=== PATIENT | female | born 1970 | race Caucasian/White ===

== ENCOUNTER 2017-12-19 09:40 | Outpatient (CLI) | payer BC | END 2017-12-19 10:00 | disposition home or self-care (01) | LOC: PTMAIN 09:40 | PROVIDERS: ATTEND Otolaryngology | DX: K21.9 Gastro-esophageal reflux disease without esophagitis (principal) | CPT/HCPCS: 31579 ==

== ENCOUNTER → 2018-10-15 | Outpatient (CLI) | payer BC ==
--- NOTE | 2018-10-15 14:53 | CT ---
EXAMINATION TYPE: CT brain wo con DATE OF EXAM: 10/15/2018 COMPARISON: 06/28/2016 HISTORY: Dizziness. CT DLP: 995.[address] of the brain was performed. Ventriculoperitoneal shunt is noted with right frontal entry and distal tip within the region of the third ventricle. Overall stable appearance with regards to location and general appearance. The ventricles, basal cisterns and sulci overlying the cerebral convexities demonstrate a normal appe arance. There is no evidence for intracranial hemorrhage or sulcal effacement. No mass effects are seen. Osseous calvarium is intact. If symptoms persist consider MRI as clinically warranted. IMPRESSION: 1. No acute intracranial process is seen at this time.
== END | disposition home or self-care (01) ==
LOC: RADCTMAIN 13:22
PROVIDERS: ATTEND Psychiatry & Neurology Neurology
DX: R42 Dizziness and giddiness (principal); R29.818 Other symptoms and signs involving the nervous system; Z98.2 Presence of cerebrospinal fluid drainage device
CPT/HCPCS: 70450

== ENCOUNTER → 2021-06-25 | Outpatient (CLI) | payer BC ==
--- NOTE | 2021-06-25 09:41 | USB ---
Reason for exam: additional evaluation requested from abnormal screening. US Breast BILAT Technologist: Betsy Morales Right complete breast ultrasound includes all four quadrants, the retroareolar region and axilla. Finding demonstrates a 0.5 x 0.5 x 0.3cm cystic lesion at 8 o'clock. Left complete breast ultrasound includes all four quadrants, the retroareolar region and axilla. Finding demonstrates a 0.4 x 0.5 x 0.3cm cystic lesion at the nipple. These results were verbally communicated with the patient and result sheet given to the patient on 06/25/21. ASSESSMENT: Benign, BI-RAD 2 RECOMMENDATION: Routine screening mammogram of both breasts in 1 year. Manage patient on a clinical basis.
--- NOTE | 2021-06-25 14:02 | MM ---
Reason for exam: clinical finding. Last mammogram was performed 8 years ago. Physical Findings: Nurse did not find any significant physical abnormalities on exam. MG Diagnostic Mammo w CAD JERRY Bilateral CC and MLO view(s) were taken. Prior study comparison: June 20, 2013, bilateral digital screening mammo w/CAD. The breast tissue is heterogeneously dense. This may lower the sensitivity of mammography. Retroareolar prominence, recommend ultrasound. These results were verbally communicated with the patient and result sheet given to the patient on 06/25/21. ASSESSMENT: Incomplete: need additional imaging evaluation, BI-RAD 0 RECOMMENDATION: Ultrasound of both breasts. Manage patient on a clinical basis.
== END | disposition home or self-care (01) ==
LOC: RADMAMWWP 07:31
PROVIDERS: ATTEND Family Medicine
DX: N60.01 Solitary cyst of right breast (principal); N60.02 Solitary cyst of left breast
CPT/HCPCS: 77066

== ENCOUNTER → 2022-05-10 | Outpatient (CLI) | payer BC ==
--- NOTE | 2022-05-10 12:32 | USB ---
Patient History: Menarche at age 13. First Full-Term at age 26. Hysterectomy at age 36. Risk Values: Sachi 5 year model risk: 1.1%. NCI Lifetime model risk: 9.9%. Prior Study Comparison: 12/14/2010 Screening Mammogram, [facility]. 06/20/2013 Bilateral Screening Mammogram, [facility]. 06/25/2021 Bilateral Diagnostic Mammogram, [facility]. Findings: The axilla of the left breast was scanned. Targeted ultrasound right axilla shows prominent but benign appearing lymph node towards end of study measuring 1.9 x 1.3 x 1.3 cm in the deep axilla. No additional concerning solid or cystic mass or fluid collection is seen. Overall Assessment: Benign, BI-RAD 2 Management: Screening Mammogram of both breasts in 2 months. Back on annual mammogram schedule. Manage clinical palpable on clinical basis. Electronically signed and approved by: Fidel Nguyen M.D.
== END | disposition home or self-care (01) ==
LOC: RADUSWWP 11:33
PROVIDERS: ATTEND Family Medicine
DX: N63.31 Unspecified lump in axillary tail of the right breast (principal)

== ENCOUNTER → 2022-08-10 | Outpatient (CLI) | payer BC ==
--- NOTE | 2022-08-10 13:37 | XR ---
EXAMINATION TYPE: XR ankle complete RT, XR foot complete RT DATE OF EXAM: 08/10/2022 CLINICAL HISTORY: Pain. Recent injury. TECHNIQUE: Frontal, lateral and oblique images of the right ankle and foot are obtained. COMPARISON: None. FINDINGS: There is no acute fracture/dislocation evident in the right ankle. The ankle mortise appe ars within normal limits. The overlying soft tissue appears unremarkable. There is no acute fracture or dislocation evident in the right foot. Old malunion fracture of the mid to distal diaphysis fifth metatarsal. Slight hallux valgus deformity first metatarsophalangeal joint . Moderate size inferior calcaneal spur. Small sized posterior superior calcaneal spur. The overlying soft tissue is unremarkable. IMPRESSION: As above.
== END | disposition home or self-care (01) ==
LOC: RADXRYALE 13:11
PROVIDERS: ATTEND Physician Assistant
DX: M77.31 Calcaneal spur, right foot (principal); M20.11 Hallux valgus (acquired), right foot; M25.571 Pain in right ankle and joints of right foot; M79.671 Pain in right foot; Z87.891 Personal history of nicotine dependence

== ENCOUNTER 2022-11-18 07:53 | Day surgery (SDC) | payer BC ==
[2022-11-16 17:23] VITALS: BMI 36.9
[~2022-11-18 07:53] MED LIST: LIDOCAINE 1% (10MG/ML) FOR IV START INTRADERMA PRN; ONDANSETRON 4 MG/2 ML VIAL IVP PRN
[2022-11-18] MEDS: LACTATED RINGERS 1,000 ML IV SCH ×2 (08:41→09:02)
[2022-11-18 08:42] VITALS: TEMP 97.9
[2022-11-18] MEDS ORDERED: LIDOCAINE 2% INJ 20 MG/ML (2 ML VIAL) ONE (09:15)
[2022-11-18] MEDS ORDERED: PROPOFOL 10 MG/ML 20 ML VIAL IV ONE (09:15)
--- NOTE | 2022-11-18 09:23 | P.PCN ---
Date of Procedure: 11/18/22 Procedure(s) Performed: BRIEF HISTORY: Patient is a 52-year-old, pleasant, white female scheduled for an upper endoscopy as a part of evaluation of severe epigastric pain and heartburn for the last 2 weeks' duration. She was having difficulty swallowing with some odynophagia. Was started on Protonix 40 mg daily as well as Carafate 1 g 4 times daily with some improvement in his symptoms. She is scheduled for an upper endoscopy to evaluate further. PROCEDURE PERFORMED: Esophagogastroduodenoscopy with biopsy. PREOPERATIVE DIAGNOSIS: Severe heartburn/dysphagia and odynophagia of 2 weeks duration. IV sedation per anesthesia. PROCEDURE: After informed consent was obtained, the patient was brought into the endoscopy unit. IV sedation was administered by Anesthesia under continuous monitoring. Initially the Olympus GIF-140 video endoscope was inserted into the mouth. Esophagus intubated without any difficulty. It was gradually advanced into the stomach and duodenum and carefully examined. The bulb and the second part of the duodenum appeared normal. The scope at this time was withdrawn to the stomach, adequately insufflated with air, and upon careful examination, mucosa of the antrum, had mild ascites and biopsies were done from this area. There are multiple gastric polyps noted in the body the stomach measuring between 3-5 mm in size which were biopsied. Rest of the body, cardia and the fundus appeared normal. The scope was then withdrawn into the esophagus. The GE junction was located at 39 cm from the incisors. The esophagus appeared normal. There were no erosions or ulcerations seen , biopsies were done from the distal esophagus and the patient tolerated the procedure well. IMPRESSION: 1. Normal-appearing esophagus with no evidence of esophagitis or esophageal stricture. 2. Mild antral gastritis 3. Multiple small gastric polyps status post biopsy. RECOMMENDATIONS: The findings of this examination were discussed with the patient is well as her family. She was advised to follow with the biopsy results. She will continue with Protonix 40 mg daily and Carafate 1 g 4 times daily. Recommend diet modification antireflux measures..
[2022-11-18 09:34] VITALS: RESP 16
[2022-11-18] MEDS ORDERED: SUCRALFATE 1 GM TAB PO STA (09:53)
[2022-11-18 09:57] VITALS: BP 111/72; PULSE 68
== END 2022-11-18 10:28 | disposition home or self-care (01) ==
LOC: ORWHC2ENDO 07:53
PROVIDERS: ATTEND Internal Medicine Gastroenterology
DX: K31.7 Polyp of stomach and duodenum (principal); K29.50 Unspecified chronic gastritis without bleeding; Z79.899 Other long term (current) drug therapy; Z98.890 Other specified postprocedural states
CPT/HCPCS: 88305; 43239; J2405; J2704; J2001

== ENCOUNTER → 2022-12-23 | Outpatient (CLI) | payer BC ==
--- NOTE | 2022-12-23 09:48 | CT ---
EXAMINATION TYPE: CT abdomen pelvis wo con DATE OF EXAM: 12/23/2022 COMPARISON: None INDICATION: periumbilical pain and digestive issues. DLP: 1162 mGycm, Automated exposure control for dose reduction was used. CONTRAST: 0 mL of . Study performed with Oral Contrast TECHNIQUE: Axial images were obtained from above the diaphragm to the pubic rami in the axial plane a t 5 mm thick sections. Reconstructed images are reviewed on the computer in the coronal plane. FINDINGS: Limited CT sections are obtained the lung bases. The lung bases are clear. CT ABDOMEN: Liver: Normal Spleen: Normal Pancreas: Normal Adrenal glands: The adrenal glands are normal. Gallbladder: Surgically absent Kidneys: No masses are evident. No hydronephrosis is present. No cysts are present. No renal stone s are evident. Aorta: Normal Inferior vena cava: Normal. CT PELVIS: Loops of bowel within the abdomen and pelvis are normal. Oral contrast extends to the distal small irina wel loops. There are loops of bowel which are incompletely distended or lack oral contrast limitin g their evaluation. Appendix: Normal as visualized. Urinary bladder: Normal. Genitourinary structures: Uterus not identified. Adnexa are clear. Osseous structures: No suspicious lytic or sclerotic lesions. No suspicious periumbilical abnormality. No abdominal wall hernia identified. Catheter is in the righ t chest. IMPRESSIONS: 1. No suspicious acute changes
== END | disposition home or self-care (01) ==
LOC: RADCTMAIN 06:35
PROVIDERS: ATTEND Family Medicine
DX: K21.9 Gastro-esophageal reflux disease without esophagitis (principal); R10.33 Periumbilical pain
CPT/HCPCS: 74176

== ENCOUNTER 2023-01-24 09:13 | Day surgery (SDC) | payer BC ==
[~2023-01-24 09:13] MED LIST changes: +LACTATED RINGERS 1,000 ML IV SCH; -ONDANSETRON 4 MG/2 ML VIAL IVP PRN
[2023-01-24 10:01] VITALS: TEMP 97.8
[2023-01-24] MEDS ORDERED: PROPOFOL 10 MG/ML 20 ML VIAL IV ONE (10:52)
[2023-01-24] MEDS ORDERED: GLYCOPYRROLATE 0.2 MG/ML 2 ML VIAL ONE (10:52)
--- NOTE | 2023-01-24 11:09 | P.PCN ---
Date of Procedure: 01/24/23 Procedure(s) Performed: BRIEF HISTORY: Patient is a 52-year-old pleasant female scheduled for an elective colonoscopy as a part of screening for colon cancer. PROCEDURE PERFORMED: Colonoscopy. PREOPERATIVE DIAGNOSIS: Screening for colon cancer. IV sedation per Anesthesia. PROCEDURE: After informed consent was obtained, the patient, was brought into the endoscopy unit. IV sedation was administered by Anesthesia under continuous monitoring. Digital rectal examination was normal. Initially the Olympus CF-160 flexible video colonoscope was then inserted in the rectum, gradually advanced into the cecum without any difficulty. Careful examination was performed as the scope was gradually being withdrawn. Ileocecal valve and the appendiceal orifice were visualized and appeared normal. Prep was excellent. Mucosa of the cecum, ascending colon, transverse colon, descending colon, sigmoid colon, and rectum appeared normal. Retroflexion was performed in the rectum and no lesions were seen. The patient tolerated the procedure well. IMPRESSION: Normal-appearing colon from rectum to cecum with no evidence of colorectal neoplasia. RECOMMENDATIONS: Findings of this examination were discussed with the patient as well as family. She was advised to have a repeat screening colonoscopy in 10 years..
[2023-01-24 11:18] VITALS: BP 91/61; PULSE 64; RESP 18
== END 2023-01-24 11:45 | disposition home or self-care (01) ==
LOC: ORWHC2ENDO 09:13
PROVIDERS: ATTEND Internal Medicine Gastroenterology
DX: Z12.11 Encounter for screening for malignant neoplasm of colon (principal); I10 Essential (primary) hypertension; E78.5 Hyperlipidemia, unspecified; J45.909 Unspecified asthma, uncomplicated; E03.9 Hypothyroidism, unspecified; Z95.5 Presence of coronary angioplasty implant and graft; F41.9 Anxiety disorder, unspecified; F32.A Depression, unspecified; K21.9 Gastro-esophageal reflux disease without esophagitis; Z79.899 Other long term (current) drug therapy
CPT/HCPCS: 45378; J2704

== ENCOUNTER → 2023-07-10 | Outpatient (CLI) | payer BC ==
--- NOTE | 2023-07-10 07:58 | US ---
EXAMINATION TYPE: US abdomen complete DATE OF EXAM: 07/10/2023 COMPARISON: CT 12/23/22, US 03/29/2013 CLINICAL INDICATION: Female, 53 years old with history of R10.84 abd pain; Hx cholecystectomy. Abdomi nal pain. TECHNIQUE: Multiple sonographic images of the abdomen are obtained. FINDINGS: EXAM MEASUREMENTS: Liver Length: 15.6 cm Gallbladder Wall: Surgically absent CBD: Obscured Spleen: 13.2 cm Right Kidney: 10.9 x 5.0 x 4.5 cm Left Kidney: 11.4 x 5.2 x 5.5 cm RELATIONSHIP MGR NOTES: Exam is limited due to gas. Pancreas: Not well seen. Liver: Appears coarse in echotexture/heterogeneous with increased echogenicity. Gallbladder: Surgically absent. Evidence for sonographic Fregoso's sign: No CBD: Obscured Spleen: Measures upper limits. Right Kidney: Increased echogenicity. Anechoic area seen lower pole: 1.3 x 1.4 x 1.3 cm. Left Kidney: Increased echogenicity. Anechoic area seen upper and lower pole. Larger area is at the u pper pole: 1.6 x 1.3 x 1.2 cm. Hyperechoic focus seen lower pole: 0.6 x 0.7 x 0.4 cm. May be a nons hadowing renal calcification. Upper IVC: Appears wnl Abd Aorta: Appears wnl IMPRESSION: 1. Nonobstructing nonshadowing renal calcification inferior pole left kidney. 2. Bilateral cysts. 3. Some limitation due to bowel gas present.
--- NOTE | 2023-07-10 08:24 | US ---
EXAMINATION TYPE: US pelvis complete transvag DATE OF EXAM: 07/10/2023 COMPARISON: CT 2022, US 2012 CLINICAL INDICATION: Female, 53 years old with history of R10.84 abd pain; Pain near umbilicus. Hx mi scarriage, , ovarian cyst, partial hysterectomy, patient has both ovaries still. A2. TECHNIQUE: Transvaginal (TV) and Transabdominal (TA) . Transabdominal sonographic images of the pel vis were acquired. Transvaginal sonographic images were medically necessary to better assess the fol lowing anatomy: ovaries. Date of LMP: Partial hysterectomy, patient is unsure at what age. EXAM MEASUREMENTS: Uterus: Surgically absent Endometrial Stripe: Surgically absent Right Ovary: Not seen Left Ovary: Not seen 1. Uterus: Surgically absent 2. Endometrium: Surgically absent 3. Right Ovary: Not seen 4. Left Ovary: Not seen 5. Bilateral Adnexa: Appear wnl 6. Posterior cul-de-sac: Appears wnl Urinary bladder is sonolucent. The posterior wall is normal. IMPRESSION: 1. No acute pelvic ultrasound abnormality.
== END | disposition home or self-care (01) ==
LOC: RADUSWWP 06:47
PROVIDERS: ATTEND Family Medicine
DX: N28.1 Cyst of kidney, acquired (principal); N28.89 Other specified disorders of kidney and ureter; R14.3 Flatulence; Z90.49 Acquired absence of other specified parts of digestive tract
CPT/HCPCS: 76700; 76830; 76856

== ENCOUNTER → 2023-08-21 | Outpatient (CLI) | payer BC ==
--- NOTE | 2023-08-21 18:54 | BD ---
EXAMINATION TYPE: Axial Bone Density DATE OF EXAM: 08/21/2023 CLINICAL HISTORY: 53 years old Female. ICD-10 CODE: Z13.820 OSTEOPOROSIS Height: 68 Weight: 254 FRAX RISK QUESTIONS: Alcohol (3 or more units per day): Family History (Parent hip fracture): no History of Fracture in Adulthood: yes, bilat feet, rt ankle Secondary Osteoporosis: yes 3. Menopause before 45: yes, total hyst under 45 RISK FACTORS HISTORY OF: Family History of Osteoporosis: no Active: yes Diet low in dairy products/other sources of calcium: no Postmenopausal woman: yes Lost more than 2 inches in height since high school: no Frequent falls: no MEDICATIONS: Thyroid Medications: yes Which medication: Synthroid How Lon+ years Additional Medications: yes iga nephropathy , hbp, cholesterol, EXAM MEASUREMENTS: Bone mineral densitometry was performed using the [email or web address] System. Bone mineral density as measured about the Lumbar spine is: ----- L1-L4(G/cm2): 1.288 T Score Values are as follows: ----- L1: 0.5 ----- L2: 0.7 ----- L3: 1.7 ----- L4: 0.7 ----- L1-L4: 0.9 Z Score Values are as follows: ----- L1: -0.1 ----- L2: 0.1 ----- L3: 1.1 ----- L4: 0.1 ----- L1-L4: 0.3 Bone mineral density density Bone mineral density about the R hip (g/cm2): 1.032 Bone mineral density about the L hip (g/cm2): 1.027 T Score values are as follows: -----R Neck: -0.3 -----L Neck: -0.1 -----R Total: 0.2 -----L Total: 0.2 Z Score values are as follows: -----R Neck: -0.2 -----L Neck: 0.0 -----R Total: -0.1 -----L Total: -0.1 Bone mineral density baseline FRAX%s: The graph provided illustrates a 7.1% chance for a major osteoporotic fx and a 0.2% chance fo r the hips probability for fx in 10 years time. IMPRESSION: Normal (Values between +1 and -1 indicate normal bone mass). Consider repeating this study in 5 year s or sooner if there is some new clinical indication. NOTE: T-SCORE=SD OF THE YOUNG ADULT MEAN.
--- NOTE | 2023-08-22 21:25 | MM ---
Reason for Exam: Screening (asymptomatic). Last mammogram was performed 2 year(s) and 2 month(s) ago. Patient History: Menarche at age 13. First Full-Term at age 26. Hysterectomy at age 36. Risk Values: Sachi 5 year model risk: 1.2%. NCI Lifetime model risk: 9.6%. Prior Study Comparison: 12/14/2010 Screening Mammogram, [facility]. 06/20/2013 Bilateral Screening Mammogram, [facility]. 06/25/2021 Bilateral Diagnostic Mammogram, [facility]. Tissue Density: There are scattered fibroglandular densities. Findings: Analyzed By CAD. There is a lead seen coursing along the medial aspect of the right breast. There is no suspicious group of microcalcifications or new suspicious mass in either breast. Overall Assessment: Negative, BI-RAD 1 Management: Screening Mammogram of both breasts in 1 year. . Patient should continue monthly self-breast exams. A clinical breast exam by your physician is recommended on an annual basis. This exam should not preclude additional follow-up of suspicious palpable abnormalities. Note on Sachi scores and lifetime risk: 1. A Sachi score greater than 3% is considered moderate risk. If this is the case, consider specialist referral to assess eligibility for a risk reducing agent. 2. If overall lifetime risk for the development of breast cancer is 20% or higher, the patient may qualify for future screening with alternating mammogram and breast MRI. Electronically signed and approved by: Krishna Smallwood M.D. Radiologist
== END | disposition home or self-care (01) ==
LOC: RADMAMWWP 07:33
PROVIDERS: ATTEND Family Medicine
DX: Z12.31 Encounter for screening mammogram for malignant neoplasm of breast (principal); Z13.820 Encounter for screening for osteoporosis; Z78.0 Asymptomatic menopausal state
CPT/HCPCS: 77063; 77067; 77080

== ENCOUNTER → 2023-11-14 | Outpatient (CLI) | payer BC ==
--- NOTE | 2023-11-14 14:49 | XR ---
Five-view lumbar spine. DATE: 11/14/2023. COMPARISON: None available. MEDICAL HISTORY: Chronic low back pain. FINDINGS: The vertebral bodies are well aligned without evidence of fracture, subluxation or dislocation. The vertebral body heights and disc spaces are maintained. IMPRESSION: No acute osseous abnormality and no significant degenerative changes.
--- NOTE | 2023-11-14 16:26 | XR ---
Two-view right hip. DATE: 11/14/2023. COMPARISON: None available. MEDICAL HISTORY: Severe right hip pain for months. FINDINGS: There is no fracture, subluxation or dislocation. The hip joint space is preserved. IMPRESSION: No acute radiographic abnormality.
== END | disposition home or self-care (01) ==
LOC: RADXRYALE 14:26
PROVIDERS: ATTEND Family Medicine
DX: M54.50 Low back pain, unspecified (principal); M25.552 Pain in left hip; M25.551 Pain in right hip
CPT/HCPCS: 72110; 73502

== ENCOUNTER → 2024-08-27 | Outpatient (CLI) | payer BC ==
--- NOTE | 2024-08-27 09:55 | MM ---
Reason for Exam: Screening (asymptomatic). Last screening mammogram was performed 12 month(s) ago. Patient History: Menarche at age 13. First Full-Term at age 26. Hysterectomy at age 36. Risk Values: Sachi 5 year model risk: 1.2%. NCI Lifetime model risk: 9.4%. Prior Study Comparison: 06/20/2013 Bilateral Screening Mammogram, [facility]. 06/25/2021 Bilateral Diagnostic Mammogram, [facility]. 08/21/2023 Bilateral MG 3D screening mammo w/cad, [facility]. Tissue Density: The breasts are heterogeneously dense, which may obscure small masses. Findings: Analyzed By CAD. There is no suspicious group of microcalcifications or new suspicious mass in either breast. Overall Assessment: Benign, BI-RAD 2 Management: Screening Mammogram of both breasts in 1 year. . Patient should continue monthly self-breast exams. A clinical breast exam by your physician is recommended on an annual basis. This exam should not preclude additional follow-up of suspicious palpable abnormalities. Note on Sachi scores and lifetime risk: 1. A Sachi score greater than 3% is considered moderate risk. If this is the case, consider specialist referral to assess eligibility for a risk reducing agent. 2. If overall lifetime risk for the development of breast cancer is 20% or higher, the patient may qualify for future screening with alternating mammogram and breast MRI. [facility], , 08/27/2024 9:52 AM. Electronically signed and approved by: Tony Ascencio M.D. Radiologis
== END | disposition home or self-care (01) ==
LOC: RADMAMWWP 06:40
PROVIDERS: ATTEND Family Medicine
DX: Z12.31 Encounter for screening mammogram for malignant neoplasm of breast (principal); R92.333 Mammographic heterogeneous density, bilateral breasts
CPT/HCPCS: 77063; 77067

== ENCOUNTER → 2024-10-03 | Outpatient (CLI) | payer BC | END | disposition home or self-care (01) | LOC: LABWHC1 09:29 | PROVIDERS: ATTEND Orthopaedic Surgery | DX: Z01.812 Encounter for preprocedural laboratory examination (principal); M17.11 Unilateral primary osteoarthritis, right knee; Z22.322 Carrier or suspected carrier of Methicillin resistant Staphylococcus aureus | CPT/HCPCS: 87070 ==

== ENCOUNTER 2024-11-04 10:13 | Day surgery (SDC) | payer BC ==
[2024-10-30 16:07] VITALS: BMI 33.4
--- NOTE | 2024-11-04 08:17 | HP ---
HISTORY AND PHYSICAL DATE OF SURGERY: 11/04/2024 HISTORY OF PRESENT ILLNESS: Brisa Cabrera is a 54-year-old patient, seen with symptomatic right knee osteoarthritis. We discussed options regarding treatment. She elected to proceed with right total knee arthroplasty. Consent was obtained. The clearance was provided by Dr. Young and Dr. Domínguez from Nephrology. PAST MEDICAL HISTORY: IgA nephropathy, hypertension, gastroesophageal reflux disease, hypothyroidism. PAST SURGICAL HISTORY: Cholecystectomy, hysterectomy, herniorrhaphy. DAILY MEDICATIONS: 1. Atenolol. 2. Crestor. 3. Enalapril. 4. Synthroid. ALLERGIES: Morphine. SOCIAL HISTORY: She denies tobacco use. PHYSICAL EVALUATION OF THE RIGHT KNEE: Range of motion is -3 to 100 degrees. Moderate effusion. Tenderness along the medial and lateral joint lines. Crepitus along the medial patellofemoral compartments with range of motion. Pain with patellofemoral compression. Ligaments stable. Hip rotation is without pain. Distal neurovascular exam is intact. IMAGING STUDIES: Radiographs of the right knee reveal severe osteoarthritic changes. IMPRESSION: 1. Right knee osteoarthritis. 2. Nephropathy. 3. Hypertension. 4. Hyperlipidemia. 5. Gastroesophageal reflux disease. PLAN: Right total knee arthroplasty. MMODL / IJN: [id number] /
[~2024-11-04 10:13] MED LIST changes: -LACTATED RINGERS 1,000 ML IV SCH; -LIDOCAINE 1% (10MG/ML) FOR IV START INTRADERMA PRN; +TRANEXAMIC 1,000 MG/100ML-NACL 1,000 MG in SALINE 1 100ML.BAG IVPB PRN
[2024-11-04] MEDS: ACETAMINOPHEN TAB 500 MG TAB PO PRN (10:40)
[2024-11-04] MEDS: MELOXICAM 7.5 MG TAB PO PRN (10:41)
[2024-11-04] MEDS: DEXAMETHASONE SOD PHOSPHATE 4 MG/ML 1 ML VIAL IV ONE (11:08)
[2024-11-04] MEDS: ONDANSETRON 4 MG/2 ML VIAL IVP ONE (11:08)
[2024-11-04 11:09] LABS: Glucose,Whole Blood 96 mg/dL (70-110)
[2024-11-04] MEDS: LACTATED RINGERS 1,000 ML IV SCH ×2 (11:09→17:50)
[2024-11-04] MEDS: VANCOMYCIN 1,500 MG in SODIUM CHLORIDE 0.9% 500 ML 500 ML IVPB PRN (11:09)
[2024-11-04] MEDS: IV FLUID CONTINUATION 1,000 ML IV ONE ×2 (11:15→16:01)
[2024-11-04] MEDS: MIDAZOLAM 2 MG/2 ML VIAL IV ONE (11:39)
[2024-11-04] MEDS: fentaNYL (PF) 50 MCG/ML 2 ML AMP IV PRN (11:42)
--- NOTE | 2024-11-04 12:12 | P.ANPRN ---
Procedure Note - Anesthesia - Nerve Block Performed Right Adductor Canal Infusion Time Out Performed: Yes (1135) Date of Procedure: 11/04/24 Procedure Start Time: 11:36 Procedure Stop Time: 11:41 Location of Patient: PreOp Indication: Acute Post-Operative Pain, Requested by Surgeon Specifically requested for management of pain by DrRodrigo: Shlomo Horan Sedation Type: Sedate with meaningful contact maintained Preparation: Sterile Prep, Sterile Dressing Position: Supine Catheter Depth at Skin (cm): 7 Catheter: Indwelling Needle Types: Pajunk Needle Gauge: 18 Ultrasound used to visualize needle placement: Yes Ultrasound used to observe medication spread: Yes Injectate: 0.5% Ropivacaine (see comment for volume) (15cc+10cc nacl pf) Blood Aspirated: No Pain Paresthesia on Injection Noted: No Resistance on Injection: Normal Image Stored and Saved: Yes Events: Uneventful and Well Tolerated
--- NOTE | 2024-11-04 12:13 | P.ANPRN ---
Procedure Note - Anesthesia - Nerve Block Performed Right iPack Single Time Out Performed: Yes (1135) Date of Procedure: 11/04/24 Procedure Start Time: 11:42 Procedure Stop Time: 11:46 Location of Patient: PreOp Indication: Acute Post-Operative Pain, Requested by Surgeon Specifically requested for management of pain by DrRodrigo: Shlomo Horan Sedation Type: Sedate with meaningful contact maintained Preparation: Sterile Prep Position: Supine Catheter: None Needle Types: Pajunk Needle Gauge: 21 Ultrasound used to visualize needle placement: Yes Ultrasound used to observe medication spread: Yes Injectate: 0.5% Ropivacaine (see comment for volume) (15cc+10cc nacl pf) Blood Aspirated: No Pain Paresthesia on Injection Noted: No Resistance on Injection: Normal Image Stored and Saved: Yes Events: Uneventful and Well Tolerated
[2024-11-04] MEDS ORDERED: ePHEDrine 50 MG/ML 1 ML VIAL ONE (13:11)
[2024-11-04] MEDS ORDERED: NEOSTIGMINE 1 MG/ML 10 ML VIAL ONE (13:11)
[2024-11-04] MEDS ORDERED: PROPOFOL 10 MG/ML 20 ML VIAL IV ONE (13:11)
[2024-11-04] MEDS ORDERED: fentaNYL (PF) 50 MCG/ML 2 ML AMP ONE (13:11)
[2024-11-04] MEDS ORDERED: GLYCOPYRROLATE 0.2 MG/ML 2 ML VIAL ONE (13:11)
[2024-11-04] MEDS ORDERED: TRANEXAMIC 1,000 MG/100ML-NACL PREMIX BAG ONE (13:11)
[2024-11-04] MEDS ORDERED: ROCURONIUM 10 MG/ML (5 ML VIAL) IV ONE (13:11)
[2024-11-04] MEDS ORDERED: HYDROmorphone (PF) 1 MG/ML ONE (13:11)
[2024-11-04] MEDS ORDERED: LIDOCAINE 1% INJ 10MG/ML (20 ML MDV) ONE (13:11)
[2024-11-04] MEDS ORDERED: ROPIVACAINE 5 MG/ML 30 ML VIAL ONE (13:11)
[2024-11-04] MEDS ORDERED: ONDANSETRON 4 MG/2 ML VIAL ONE (13:11)
[2024-11-04] MEDS ORDERED: SODIUM CHLORIDE 0.9% (PF) 10 ML VIAL ONE (13:11)
[2024-11-04] MEDS ORDERED: SUCCINYLCHOLINE CHLORIDE 200 MG/10 ML VIAL IV ONE (13:11)
[2024-11-04] MEDS: ceFAZolin 1,000 MG in SODIUM CHLORIDE 0.9% 1,000 ML IRRIGATION ONE (13:22)
[2024-11-04] MEDS ORDERED: HYDROcodone/APAP 5-325MG 1 EACH TAB PO PRN (15:09)
[2024-11-04] MEDS ORDERED: HYDROmorphone 0.5 MG/0.5 ML SYRINGE IVP PRN (15:09)
[2024-11-04] MEDS ORDERED: NALOXONE 0.4 MG/ML 1 ML VIAL IV PRN (15:09)
--- NOTE | 2024-11-04 15:09 | P.OP ---
Date of Procedure: 11/04/24 Preoperative Diagnosis: Right knee osteoarthritis Postoperative Diagnosis: Right knee osteoarthritis Procedure(s) Performed: Right total knee arthroplasty Implants: 1. DePuy attune size 6 narrow right cruciate retaining cemented femur 2. DePuy attune size 5 fixed-bearing cemented tibial baseplate 3. DePuy attune size 6 fixed-bearing cruciate retaining 6 mm polyethylene tibial insert 4. DePuy attune 38 mm all polyethylene cemented patella Anesthesia: GETA, regional (Adductor canal catheter, iPAQ block) Surgeon: Shlomo Horan Supervisor Steno Pool #1: Royer Issa Estimated Blood Loss (ml): 45 Pathology: none sent Condition: stable Disposition: PACU Indications for Procedure: 54-year-old patient seen with symptomatic right knee osteoarthritis. After having treatment options discussed, she elected to proceed with right total knee arthroplasty. Operative Findings: See description of procedure Description of Procedure: Patient was taken to the operative suite after having an adductor canal catheter placed by the department of anesthesia. Patient underwent a general anesthetic by the department of anesthesia. Patient was given preoperative IV intake antibiotics and TXA. A well-padded tourniquet was placed about the right lower extremity. The lower extremity was then prepped and draped in the normal sterile orthopedic fashion. The extremity was elevated, a tourniquet was insufflated to 300. A standard anterior incision was made sharply through skin. Dissection was taken down through the subcutaneous soft tissues down to the extensor mechanism. A medial arthrotomy was performed, patella was everted and knee was flexed. There was advanced osteoarthritis noted. I introduced my distal intramedullary femoral drill. I then introduced the distal femoral cutting jig. Lv CAVAZOS secured the cutting jig with 2 pins. I held retractors in position while Lv CAVAZOS performed the distal femoral resection through the guide area we now removed her distal femoral cutting guide. We now placed our 4-in-1 femoral cutting block and positioned and it was secured with 2 pins by Lv CAVAZOS while I held the block in position. The distal femoral finishing was now completed. A proximal tibial cutting guide was positioned. I held the guide in the appropriate position with both hands well Lv CAVAZOS inserted stabilizing pins into the guide. Proximal tibial cut was made. We now placed a trial femoral component into position, along with an appropriate size tibial tray and insert. We now took the knee through range of motion and had full extension good flexion and good overall soft tissue balance noted. The patella was everted and stabilized with 2 towel clips held by Lv CAVAZOS while I performed a flush with patellar quad tendon utilizing a fresh sawblade. We templated the patella, appropriate drill holes were made. An appropriate trial patella was positioned, knee was taken through full range of motion with the patella tracking very nicely. The trial patella was removed. Drill holes were made through the femoral component. All trial components were removed after marking off the appropriate rotation of the tibia. Retractors were now positioned along the proximal tibia. An appropriate keel punch was made with the appropriate size tibial guide by myself on Lv CAVAZOS assisted by holding retractors. At this point appropriate size implants were chosen and opened. The joint was irrigated copiously with pulse lavage mechanical irrigation. The wound was irrigated with pulse lavage mechanical irrigation. We mixed antibiotic methylmethacrylate. We placed the knee into flexion. We placed multiple retractors assisted by Lv CAVAZOS to expose the proximal tibia. Once the methyl methacrylate was ready, the tibial component was cemented into place removing any excess methylmethacrylate form by both myself and Lv CAVAZOS. The femoral component was cemented into place removing the removing any excess methylmethacrylate performed by both myself and Lv CAVAZOS. We then inserted the appropriate size polyethylene tibial insert. We made sure that it was locked into position. We took the knee into full extension, and then back in a flexion making sure we had removed any excess methylmethacrylate. The patellar component was then cemented down and secured with clamp. Excess methylmethacrylate removed. We kept the knee in full extension, patellar clamp in position until methylmethacrylate had hardened. Once it had hardened the patellar clamp was removed. The knee was taken through full range of motion. The patella tracked nicely. There was good soft tissue balancing. The tourniquet was now released. Additional hemostasis was achieved via electrocautery. A second gram of TXA was given. The wound again was irrigated with pulse lavage mechanical irrigation. The extensor mechanism was repaired with Ethibond suture. We checked the repair with range of motion and it was stable. The subcutaneous soft tissues were repaired with Vicryl in layers. The skin was approximated with pernio/Dermabond. Sterile dressings were applied followed by loose web roll and Bobo bandage. The patient was transferred to a bed, and taken to recovery in stable and satisfactory condition. Lv CAVAZOS assisted with this complex procedure.
[2024-11-04] MEDS: ROPIVACAINE 1,100 MG, SODIUM CHLORIDE 0.9% 500 ML 330 ML, EMPTY PAIN BALL 1 EACH MISCELLANE PRN (15:48)
--- NOTE | 2024-11-04 15:55 | XR ---
EXAMINATION TYPE: XR knee limited RT DATE OF EXAM: 11/04/2024 3:49 PM INDICATION: Patient age:Female; 54 years old; Reason for study: Evaluation for Postop abnormality and alignment; PHH. pain COMPARISON: Right knee radiograph 09/23/2024, 05/07/2024, 12/29/2023 TECHNIQUE: The Right knee(s) was examined in frontal and lateral projections. FINDINGS: Status post total knee arthroplasty changes with hardware in appropriate alignment and in tact. No evidence of fracture. Subcutaneous lucencies and lucencies within the joint consistent with surgical changes. IMPRESSION: Status post total knee arthroplasty changes with hardware intact and appropriate alignment. No fractu res identified. [facility], , 11/04/2024 3:52 PM
[2024-11-04] MEDS: HYDROmorphone 0.5 MG/0.5 ML SYRINGE IVP PRN (15:57)
[2024-11-04] MEDS ORDERED: ALBUTEROL NEBULIZED 2.5 MG/3 ML INHALATION PRN (17:52)
[2024-11-04] MEDS ORDERED: SUCRALFATE 1 GM TAB PO PRN (17:52)
[2024-11-04] MEDS: HYDROcodone/APAP 7.5-325MG 1 EACH TAB PO PRN (18:58)
[2024-11-04] MEDS: lisinopriL 20 MG TAB PO SCH (20:25)
[2024-11-04] MEDS: ASPIRIN 81 MG PO SCH (20:25)
[2024-11-04] MEDS: ONDANSETRON 4 MG/2 ML VIAL IVP PRN (20:26)
[2024-11-04] MEDS: SENNOSIDES-DOCUSATE SODIUM 1 EACH TAB PO SCH (20:26)
[2024-11-04] MEDS: TOPIRAMATE 25 MG TAB PO SCH (20:26)
[2024-11-04] MEDS: HYDROmorphone 1 MG/ML 1 ML SYRINGE IVP PRN (20:26)
--- NOTE | 2024-11-05 03:09 | P.CONS ---
History of Present Illness - Reason for Consult Consult date: 11/04/24 - History of Present Illness History of present illness; Patient is a 54-year-old female with hypertension, hyperlipidemia, hypothyroidism, GERD, asthma who presents for elective right knee arthroplasty. Internal medicine was consulted for medical management. Patient had symptomatic osteoarthritis of right knee. Patient then followed up with orthopedic surgery outpatient and had planned surgery today. Patient is now postop with no known surgical complications. Patient is sitting up in bed resting with no complaints of pain. Patient reports absence of fever, chills, weight loss, chest pain, palpitations, diaphoresis, dyspnea, cough, nausea, vomiting, constipation, diarrhea, abdominal pain, weakness, myalgia, dizziness, headache, and dysuria. REVIEW OF SYSTEMS: All systems reviewed, pertinent positives and negatives noted in HPI. All other symptoms are negative. PHYSICAL EXAMINATION: Vitals reviewed GENERAL: No acute distress. Well developed, obese. HEENT: Pupils are round and equally reacting to light. EOMI. No scleral icterus. Normocephalic, atraumatic. PULMONARY: Chest is clear to auscultation, no wheezing, rhonchi, or crackles. ABDOMEN: Soft, nontender, nondistended. MUSCULOSKELETAL: Right knee dressing in place. EXTREMITIES: No apparent cyanosis, clubbing, or pedal edema. NEUROLOGICAL: The patient is alert and oriented x3, Gross neurological examination did not reveal any focal deficits. Lower extremity sensation intact. SKIN: No apparent rashes. Initial findings: Initial lab workup revealed glucose 96. Knee x-ray independently interpreted as status post total knee arthroplasty h ardware intact, no fractures. Assessment and plan Patient is a 54-year-old female with hypertension, hyperlipidemia, hypothyroidism, GERD, asthma who presents for elective right knee arthroplasty. Chronic Medical Conditions #Essential hypertension - Resume home Lisinopril #Hypothyroidism - Resume home Synthroid #GERD- Resume home Pantoprazole # Total right knee arthroplasty -Pain management and DVT prophylaxis per primary surgical team F: IV LR 20 mL/hr E: Replete as needed N: Regular diet DVT ppx: per primary surgical team Code status: Full code Patient is stable from medical stand point Follow up CBC and BMP in AM Dictation was produced using uTrack TV dictation software. Please excuse any grammatical, word or spelling errors. I have seen and evaluated the patient today. I Discussed the case with the resident and agree with the resident's findings I edited the assessment and plan as necessary as documented in the resident's note. Past Medical History Past Medical History: Asthma, GERD/Reflux, Hyperlipidemia, Hypertension, Neurologic Disorder, Renal Disease, Thyroid Disorder History of Any Multi-Drug Resistant Organisms: None Reported Year Discovered:: 10/03/24 MDRO Source:: nasal Past Surgical History: Cholecystectomy, Hysterectomy Additional Past Surgical History / Comment(s): brain surg hydrocephalis, COLONOSCOPY/EGD, Past Anesthesia/Blood Transfusion Reactions: No Reported Reaction Additional Past Anesthesia/Blood Transfusion Reaction / Comm: No hx of blood transfusion to date. Past Psychological History: Anxiety, Depression, Panic Disorder Smoking Status: Never smoker Past Alcohol Use History: None Reported Past Drug Use History: None Reported - Past Family History Mother Family Medical History: No Reported History Father Family Medical History: Cancer, Deep Vein Thrombosis (DVT), Pulmonary Embolus Medications and Allergies Home Medications Medication Instructions Recorded Confirmed Type Pantoprazole [Protonix] 80 mg PO [facility] 11/16/22 11/04/24 History Topiramate [Topamax] 50 mg PO BID 11/16/22 11/04/24 History Albuterol Inhaler [Ventolin Hfa 1 puff IN DAILY PRN 01/23/23 11/04/24 History Inhaler] Fluticasone Nasal [place] [Flonase 1 - 2 spray NASAL DAILY PRN 01/23/23 11/04/24 History Nasal [place]] methocarbamoL [Methocarbamol] 1,500 mg PO [facility] 01/23/23 11/04/24 History methocarbamoL [Robaxin-750] 750 mg PO 01/23/23 11/04/24 History Enalapril Maleate [Vasotec] 20 mg PO 10/30/24 11/04/24 History Levothyroxine Sodium [Synthroid] 112 mcg PO DAILY 10/30/24 11/04/24 History Miltivitamin(Unknown Dose) 1 dose PO QA 10/30/24 11/04/24 History Sucralfate [Carafate] 1 gm PO QID PRN 10/30/24 11/04/24 History Tirzepatide [Mounjaro] 12.5 mg SQ TH 10/30/24 11/04/24 History Allergies Allergy/AdvReac Type Severity Reaction Status Date / Time morphine AdvReac Nausea & Verified 11/04/24 10:18 Vomiting Physical Exam Vitals: Vital Signs Temp Pulse Resp BP Pulse Ox 11/04/24 17:33 98.6 F 79 18 139/80 96 11/04/24 16:56 67 16 122/63 11/04/24 16:41 56 L 16 147/73 97 11/04/24 16:26 54 L 12 140/70 96 11/04/24 16:11 64 12 145/75 96 11/04/24 15:56 62 12 141/76 94 L 11/04/24 15:41 63 14 156/75 93 L 11/04/24 15:26 97.4 F L 58 L 14 208/81 94 L 11/04/24 11:54 55 L 16 117/81 99 11/04/24 10:53 98.5 F 68 18 129/85 100 Intake and Output 11/04/24 11/04/24 11/04/24 06:59 14:59 22:59 Intake Total 901 200 Output Total 40 Balance 861 200 Intake: IV 901 200 Output: Estimated Blood Loss 40 Other: # Voids 1 Weight 102.5 kg 102.5 kg
[2024-11-05 04:07] VITALS: RESP 16
[2024-11-05] MEDS: PANTOPRAZOLE 40 MG TABLET PO SCH (06:59)
[2024-11-05] MEDS: LEVOTHYROXINE 112 MCG TAB PO SCH (06:59)
[2024-11-05] MEDS ORDERED: HYDROmorphone 0.5 MG/0.5 ML SYRINGE IVP PRN (07:00)
[2024-11-05 08:07] VITALS: BP 107/72; PULSE 69; TEMP 98.4
[2024-11-05] MEDS: MULTIVITAMINS, THERA 1 EACH TAB PO SCH (08:14)
--- NOTE | 2024-11-05 08:17 | P.PN ---
Progress Note - Text Progress Note Date: 11/05/24 (349) Anesthesiology Postop day 1 status post total knee arthroplasty with adductor canal catheter. Patient doing well. VAS 0 out of 10. Gross strength intact in lower extremity. Afebrile. Denies alterations in sensorium. Catheter site intact. Heart regular rate Lungs nonlabored Abdomen nondistended Assessment: Postop day 1 status post total knee arthroplasty with adductor canal catheter Plan: 1.All questions answered. Maintain catheter 2 more days with patient removal at home. Instructions to be given at discharge. 2.This note was dictated using I-Pulse software. Please be advised there is a potential for misspellings or errors in health insurance specialist.
[2024-11-05] MEDS: HYDROmorphone 0.5 MG/0.5 ML SYRINGE IVP PRN (08:18)
[2024-11-05 10:58] LABS: Basophils # (A) 0.02 X 10*3/uL (0.00-0.10); Basophils % (A) 0.2 %; Eosinophils # (A) 0.01 X 10*3/uL (0.04-0.35); Eosinophils % (A) 0.1 %; HCT 35.3 % (37.2-46.3); HGB 11.4 g/dL (12.0-15.0); Lymphocytes # (A) 1.49 X 10*3/uL (0.90-5.00); Lymphocytes % (A) 15.4 %; MCH 29.5 pg (27.0-32.0); MCHC 32.3 g/dL (32.0-37.0); MCV 91.2 FL (80.0-97.0); Mean Platelet Volume 13.6 FL (9.5-12.2); Monocytes # (A) 0.76 X 10*3/uL (0.20-1.00); Monocytes % (A) 7.9 %; NRBC Per 100 WBC 0 X 10*3/uL (0.00-0.01); Neutrophils # (A) 7.35 X 10*3/uL (1.80-7.70); Platelet Count 150 X 10*3/uL (140-440); RBC 3.87 X 10*6/uL (4.10-5.20); RDW 12.8 % (11.5-14.5); WBC 9.67 X 10*3/uL (4.50-10.00)
[2024-11-05] MEDS: methocarbamoL 750 MG TAB PO SCH (11:13)
--- NOTE | 2024-11-05 11:55 | P.PN ---
Subjective Progress Note Date: 11/05/24 Principal diagnosis: s/p right total knee arthroplasty Patient evaluated at bedside, her was also present. Patient's been doing relatively well, she has had some increase in pain since working with physical therapy. She notes most of the discomfort over the anterior aspect of the knee. She has been taking the [place] 7.5 mg / 325 mg, she normally takes methocarbamol which she is receiving a dose of that shortly. She has been urinating with no issues since surgery. She has no headaches, lightheadedness, chest pain or shortness of breath Objective - Vital Signs Vital signs: Vital Signs Temp 98.4 F 11/05/24 08:00 Pulse 69 11/05/24 08:00 Resp 16 11/05/24 11:46 BP 107/72 11/05/24 08:00 Pulse Ox 98 11/05/24 08:00 FiO2 Intake & Output 11/04/24 11/05/24 11/05/24 18:59 06:59 18:59 Intake Total 1101 1080 320 Output Total 40 Balance 1061 1080 320 Weight 102.5 kg Intake: IV 1101 Oral 1080 320 Output: Estimated Blood Loss 40 Other: # Voids 1 3 - Exam Right lower extremity: Incision is clean, dry, and intact. The foam dressing is in good condition. There is minimal soft tissue swelling and ecchymosis surrounding the medial and lateral aspects of the incision. Calf is soft, no tenderness with palpation. Plantar flexion, dorsiflexion, EHL, FHL are intact. Sensory exam to light touch throughout the extremity is intact, dorsal pedis pulses 2+. - Labs CBC & Chem 7: 11/05/24 05:17 Labs: Abnormal Lab Results - Last 24 Hours (Table) 11/05/24 Range/Units 05:17 RBC 3.87 L (4.10-5.20) X 10*6/uL Hgb 11.4 L (12.0-15.0) g/dL Hct 35.3 L (37.2-46.3) % MPV 13.6 H (9.5-12.2) FL Eosinophils # 0.01 L (0.04-0.35) X 10*3/uL Assessment and Plan Assessment: Postoperative day #1 status post right total knee arthroplasty Plan: Pain control, adjusted [place] 7.5 mg / 325 mg to every 4 hours. Will see how nataliya gregoria reacts utilizing the methocarbamol. Discussed the use of possible Lyrica taper. DVT prophylaxis, continue aspirin as scheduled Wound care instructions discussed, this to include icing and elevating Encourage incentive spirometer Medical recommendations appreciated Discharge planning: Will reassess patient later this afternoon to determine possible discharge home today pending pain control Time with Patient: Less than 30
[2024-11-05 12:22] LABS: BUN/Creat Ratio 14.38 Ratio (12.00-20.00); Calcium 8.7 mg/dL (8.7-10.3); Carbon Dioxide 21.3 mmol/L (21.6-31.8); Chloride 110 mmol/L (96-109); Glucose 93 mg/dL (70-110); Potassium 4.5 mmol/L (3.5-5.5); Sodium 143 mmol/L (135-145)
--- NOTE | 2024-11-05 13:22 | P.DS ---
Providers Date of admission: 11/04/2024 Expected date of discharge: 11/05/24 Attending physician: Shlomo Horan Consults: 11/04/24 15:09 Consult Physician Routine Consulting Provider: Ramon Smith Consult Reason/Comments: Medical management Do you want consulting provider notified?: Yes Primary care physician: [facility] Course: Date of admission: 11/04/2024 Date of discharge: 11/05/2024 Admission diagnosis: Status post right total knee arthroplasty Discharge diagnosis: Same Attending physician: Dr. Horan Surgical procedures: Right total knee arthroplasty Brief history: Patient is a 54-year-old female with a history of progressive primary right knee osteoarthritis. At this point patient has failed conservative treatment measures and has opted to proceed with a elective right total knee arthroplasty. Hospital course: Details of patient's surgery can be found in operative report. Patient tolerated the procedure well and was subsequently transported to orthopedic floor. Patient's orthopeidc and medical care was provided daily. Patient had daily laboratory tests performed for evaluation of overall blood counts. Patient had daily physical therapy to include strengthening range of motion as well as education with walker ambulation. Patient was treated with aspirin for their postoperative DVT prophylaxis during their inpatient stay. Patient was noted to have a relatively uneventful postoperative course. Patient reported satisfactory pain control with oral pain medications by postoperative day 1. Patient showed satisfactory progress with physical therapy. Patient moved steadily through the program and had no difficulty meeting the goals by postoperative day 1. Given patient's otherwise satisfactory course and having met physical therapy goals, plan is to discharge patient home on postoperative day 1. Discharge condition/disposition: Patient will be discharged home in stable condition. Discharge medications: Instructions are given on resumption of patient's normal daily medications per primary care recommendation, in addition patient will be prescribed [place] 7.5 mg / 325 mg, senna S, aspirin 81 mg. Discharge instructions: 1. Wound care and infection precautions, keep incision dry and covered while showering, no lotions, creams, moisturizers. No soaking, tubs, pools, hottubs. Do not scrub over the incision. 2. Weight-bear as tolerated with walker / cane until follow-up. 3. Ice and elevate when necessary. Do not exceed 20 minutes per hour with ice pack. 4. Utilize compression sleeve until seen at first follow up appointment. 5. Visiting nursing care. 6. Home physical therapy including home CPM. 7. Pain meds and anticoagulants per prescription. 8. Pain medication has potential to cause constipation. Increase oral fluid and fiber intake. Contact primary care provider if you have not had a bowel movement within 48 hours after discharge 9. No anti-inflammatory medication until discussed at first post operative visit, this including Motrin, Aleve, Mobic, Diclofenac. 10. Follow up in office at 2 weeks postop with Lv Issa PA-C/Chapincito Nath 11. Follow up with your primary care doctor 7-10 days after discharge. 12. Contact [facility] with any questions, . Procedures: Status post right total knee arthroplasty Patient Condition at Discharge: Good Plan - Discharge Summary Discharge Rx Participant: No New Discharge Prescriptions: New Aspirin [Adult Low Dose Aspirin EC] 81 mg PO BID #60 tab Sennosides/Docusate Sodium [Senna-S 8.6-50 mg Tablet] 2 each PO DAILY PRN #30 tablet PRN Reason: Constipation HYDROcodone/APAP 7.5-325MG [[place] 7.5] 1 each PO Q4HR PRN #42 tab PRN Reason: Pain No Action Pantoprazole [Protonix] 80 mg PO QAM Topiramate [Topamax] 50 mg PO BID Fluticasone Nasal [place] [Flonase Nasal [place]] 1 - 2 spray NASAL DAILY PRN PRN Reason: allergies methocarbamoL [Robaxin-750] 750 mg PO HS Tirzepatide [Mounjaro] 12.5 mg SQ TH Sucralfate [Carafate] 1 gm PO QID PRN PRN Reason: gas Miltivitamin(Unknown Dose) 1 dose PO QAM methocarbamoL [Methocarbamol] 1,500 mg PO QAM Albuterol Inhaler [Ventolin Hfa Inhaler] 1 puff IN DAILY PRN PRN Reason: Shortness Of Breath Or Wheezing Levothyroxine Sodium [Synthroid] 112 mcg PO DAILY Enalapril Maleate [Vasotec] 20 mg PO HS Discharge Medication List Pantoprazole [Protonix] 80 mg PO QAM 11/16/22 [History] Topiramate [Topamax] 50 mg PO BID 11/16/22 [History] Albuterol Inhaler [Ventolin Hfa Inhaler] 1 puff IN DAILY PRN 01/23/23 [History] Fluticasone Nasal [place] [Flonase Nasal [place]] 1 - 2 spray NASAL DAILY PRN 01/23/23 [History] methocarbamoL [Methocarbamol] 1,500 mg PO QAM 01/23/23 [History] methocarbamoL [Robaxin-750] 750 mg PO HS 01/23/23 [History] Enalapril Maleate [Vasotec] 20 mg PO HS 10/30/24 [History] Levothyroxine Sodium [Synthroid] 112 mcg PO DAILY 10/30/24 [History] Miltivitamin(Unknown Dose) 1 dose PO QAM 10/30/24 [History] Sucralfate [Carafate] 1 gm PO QID PRN 10/30/24 [History] Tirzepatide [Mounjaro] 12.5 mg SQ TH 10/30/24 [History] Aspirin [Adult Low Dose Aspirin EC] 81 mg PO BID #60 tab 11/05/24 [Rx] HYDROcodone/APAP 7.5-325MG [[place] 7.5] 1 each PO Q4HR PRN #42 tab 11/05/24 [Rx] Sennosides/Docusate Sodium [Senna-S 8.6-50 mg Tablet] 2 each PO DAILY PRN #30 tablet 11/05/24 [Rx] Follow up Appointment(s)/Referral(s): Residential Home,[facility] [NON-STAFF] - 1 Week Royer Issa PAC [PHYSICIAN FOOD SAFETY COORDINATOR] - 2 Weeks Activity/Diet/Wound Care/Special Instructions: Orthopedic Discharge Instructions: 1. Wound care and infection precautions, keep incision dry and covered while showering, no lotions, creams, moisturizers. No soaking, pools, hot tubs. Do not scrub over incision. 2. Weight-bear as tolerated with walker / cane until follow-up. 3. Ice and elevate when necessary. Do not exceed 20 minutes per hour with ice pack. 4. Utilize compression sleeve until seen at first follow up appointment. 5. Pain meds and anticoagulants per prescription. 6. Pain medication has potential to cause constipation. Increase oral fluid and fiber intake. Contact primary care provider if you have not had a bowel movement within 48 hours after discharge. 7. No anti-inflammatory medication until discussed at first post operative visit, this including Motrin, Aleve, Mobic, Diclofenac. 8. Follow up in office at 2 weeks postop with Lv Issa PA-C/Chapincito Cazares PA-C 9. Follow up with your primary care doctor 7-10 days after discharge. 10. Contact [facility] with any questions, . Wound care instructions: 1. Okay to remove surgical dressing as of 11/13/2024 2. Okay to shower directly over the incision after removal of dressing Discharge Disposition: HOME WITH HOME HEALTH SERVICES
[2024-11-05] MEDS: HYDROcodone/APAP 7.5-325MG 1 EACH TAB PO PRN (13:45)
--- NOTE | 2024-11-05 13:58 | P.PN ---
Subjective Progress Note Date: 11/05/24 pt seen and examined doing well states she is ready for discharge Objective - Vital Signs Vital signs: Vital Signs Temp 98.4 F 11/05/24 08:00 Pulse 69 11/05/24 08:00 Resp 16 11/05/24 11:46 BP 107/72 11/05/24 08:00 Pulse Ox 98 11/05/24 08:00 FiO2 Intake & Output 11/04/24 11/05/24 11/05/24 18:59 06:59 18:59 Intake Total 1101 1080 320 Output Total 40 Balance 1061 1080 320 Weight 102.5 kg Intake: IV 1101 Oral 1080 320 Output: Estimated Blood Loss 40 Other: # Voids 1 3 - Exam PHYSICAL EXAMINATION: Vitals reviewed GENERAL: No acute distress. Well developed, obese. HEENT: Pupils are round and equally reacting to light. EOMI. No scleral icterus. Normocephalic, atraumatic. PULMONARY: Chest is clear to auscultation, no wheezing, rhonchi, or crackles. ABDOMEN: Soft, nontender, nondistended. MUSCULOSKELETAL: Right knee dressing in place. EXTREMITIES: No apparent cyanosis, clubbing, or pedal edema. NEUROLOGICAL: The patient is alert and oriented x3, Gross neurological examination did not reveal any focal deficits. Lower extremity sensation intact. SKIN: No apparent rashes. - Labs CBC & Chem 7: 11/05/24 05:17 11/05/24 05:17 Labs: Abnormal Lab Results - Last 24 Hours (Table) 11/05/24 11/05/24 Range/Units 05:17 05:17 RBC 3.87 L (4.10-5.20) X 10*6/uL Hgb 11.4 L (12.0-15.0) g/dL Hct 35.3 L (37.2-46.3) % MPV 13.6 H (9.5-12.2) FL Eosinophils # 0.01 L (0.04-0.35) X 10*3/uL Chloride 110 H (96-109) mmol/L Carbon Dioxide 21.3 L (21.6-31.8) mmol/L Creatinine 1.6 H (0.6-1.5) mg/dL Est GFR (CKD-EPI) 38 L (>=60) Assessment and Plan Assessment: Chronic Medical Conditions #Essential hypertension - Resume home Lisinopril #Hypothyroidism - Resume home Synthroid #GERD- Resume home Pantoprazole # Total right knee arthroplasty -Pain management and DVT prophylaxis per primary surgical team -Stable for discharge from medicine standpoint F: IV LR 20 mL/hr E: Replete as needed N: Regular diet DVT ppx: per primary surgical team Code status: Full code
== END 2024-11-05 15:13 | disposition home health service (06) ==
LOC: OR 10:13 → 4SSUR 15:18 → OR 11-05 15:13
PROVIDERS: ATTEND Orthopaedic Surgery
DX: M17.11 Unilateral primary osteoarthritis, right knee (principal); G89.18 Other acute postprocedural pain; I12.9 Hypertensive chronic kidney disease with stage 1 through stage 4 chronic kidney disease, or unspecified chronic kidney disease; N18.32 Chronic kidney disease, stage 3b; E78.2 Mixed hyperlipidemia; E03.9 Hypothyroidism, unspecified; N28.9 Disorder of kidney and ureter, unspecified; J45.909 Unspecified asthma, uncomplicated; G43.009 Migraine without aura, not intractable, without status migrainosus; K21.9 Gastro-esophageal reflux disease without esophagitis; E55.9 Vitamin D deficiency, unspecified; E66.01 Morbid (severe) obesity due to excess calories; Z68.34 Body mass index [BMI] 34.0-34.9, adult; Z79.890 Hormone replacement therapy; Z79.85 Long-term (current) use of injectable non-insulin antidiabetic drugs; Z79.899 Other long term (current) drug therapy; Z88.5 Allergy status to narcotic agent
CPT/HCPCS: 27447; 97161; 64999; 64448; 80048; 85025; 73560; C1776; C1713 ×2; C1751; J2250; J3370; J0330; J1100; J2710; J0690 ×3; J2405; J2003; J3010; J1171 ×4; J2795; J2704; J1596

== ENCOUNTER 2025-03-24 11:11 | Day surgery (SDC) | payer BC ==
--- NOTE | 2025-03-24 07:32 | HP ---
HISTORY AND PHYSICAL ANTICIPATED DATE OF SURGERY: 03/24/2025. HISTORY OF PRESENT ILLNESS: Brisa Cabrera is a 54-year-old patient seen with persistent right knee adhesive capsulitis with history of previous total knee arthroplasty. After having options regarding treatment discussed, she had to proceed with right knee manipulation under anesthesia. Consents obtained. PAST MEDICAL HISTORY: Hypertension, gastroesophageal reflux disease, hypothyroidism, hyperlipidemia. PAST SURGICAL HISTORY: Cholecystectomy, herniorrhaphy, hysterectomy, knee arthroplasty. DAILY MEDICATIONS: 1. Atenolol. 2. Crestor. 3. Enalapril. 4. Pantoprazole. 5. Synthroid. 6. Vitamins. ALLERGIES: Morphine. SOCIAL HISTORY: She denies tobacco use. PHYSICAL EVALUATION OF THE RIGHT KNEE: Shows a well-healed incision. Range of motion is 0 to 95. Ligaments stable. Hip rotation without pain. Distal neurovascular exam intact. Right knee radiographs revealed stable total knee arthroplasty. IMPRESSION: 1. Right knee adhesive capsulitis. 2. History of right total knee arthroplasty. 3. Hypertension. 4. Hyperlipidemia. 5. Hypothyroidism. 6. Gastroesophageal reflux disease. PLAN: Manipulation under anesthesia right knee. MMODL / IJN: [id number] /
[~2025-03-24 11:11] MED LIST changes: +HYDROmorphone 0.5 MG/0.5 ML SYRINGE IVP PRN; -TRANEXAMIC 1,000 MG/100ML-NACL 1,000 MG in SALINE 1 100ML.BAG IVPB PRN
[2025-03-24] MEDS: IV FLUID CONTINUATION 1,000 ML IV ONE ×3 (11:50→12:41)
[2025-03-24] MEDS: ONDANSETRON 4 MG/2 ML VIAL IVP ONE (12:12)
[2025-03-24] MEDS: LACTATED RINGERS 1,000 ML IV SCH (12:12)
[2025-03-24] MEDS: DEXAMETHASONE SOD PHOSPHATE 4 MG/ML 1 ML VIAL IV ONE (12:12)
[2025-03-24] MEDS: MIDAZOLAM 2 MG/2 ML VIAL IV ONE (12:13)
[2025-03-24 12:25] VITALS: TEMP 98.2
[2025-03-24] MEDS ORDERED: PROPOFOL 10 MG/ML 20 ML VIAL IV ONE (12:54)
[2025-03-24] MEDS ORDERED: KETOROLAC 15 MG/ML 1 ML VIAL ONE (12:54)
[2025-03-24] MEDS ORDERED: HYDROmorphone (PF) 1 MG/ML ONE (12:54)
--- NOTE | 2025-03-24 13:05 | P.OP ---
Date of Procedure: 03/24/25 Preoperative Diagnosis: Right knee adhesive capsulitis Postoperative Diagnosis: Right knee adhesive capsulitis: Procedure(s) Performed: Manipulation under anesthesia right knee Anesthesia: MAC Surgeon: Shlomo Horan Estimated Blood Loss (ml): 0 Pathology: none sent Condition: stable Disposition: PACU Indications for Procedure: 54-year-old patient seen with right knee adhesive capsulitis after having undergone previous total knee arthroplasty. After discussing options, she elected to proceed with manipulation under anesthesia right knee. Operative Findings: See description of procedure Description of Procedure: Patient was taken to a monitored anesthesia area. She received IV sedation by the department of anesthesia. Once sufficient anesthesia was noted I performed a manipulation of the right knee achieving near full range of motion with audible tearing of the adhesions. The knee was ligamentously stable. Patient was awakened out of the procedure well. She will proceed with range of motion, strengthening and physical therapy.
[2025-03-24 14:07] VITALS: PULSE 57
[2025-03-24 14:17] VITALS: BP 101/67; RESP 57
== END 2025-03-24 14:31 | disposition home or self-care (01) ==
LOC: OR 11:11
PROVIDERS: ATTEND Orthopaedic Surgery
DX: T84.092A Other mechanical complication of internal right knee prosthesis, initial encounter (principal); I10 Essential (primary) hypertension; E78.5 Hyperlipidemia, unspecified; E03.9 Hypothyroidism, unspecified; K21.9 Gastro-esophageal reflux disease without esophagitis; N02.B1 Recurrent and persistent immunoglobulin A nephropathy with glomerular lesion; J45.909 Unspecified asthma, uncomplicated; Z79.890 Hormone replacement therapy; Z79.899 Other long term (current) drug therapy; Z88.5 Allergy status to narcotic agent
CPT/HCPCS: 27570; J2250; J1100; J2405; J1171; J1885; J2704